=== PATIENT | male | born 1975 | race Caucasian/White ===

== ENCOUNTER 2024-09-14 01:08 | Emergency (ER) | payer OTHER ==
[~2024-09-14] VITALS: Ht 175.3 cm; Wt 131.5 kg
[2024-09-14 04:12] VITALS: BP 132/90; TEMP 98; O2SAT 97
== END 2024-09-14 04:13 | disposition home or self-care (01) ==
LOC: ER 01:10
DX: T16.1XXA Foreign body in right ear, initial encounter (principal); W44.G1XA Audio device entering into or through a natural orifice, initial encounter; Y93.89 Activity, other specified; Y92.89 Other specified places as the place of occurrence of the external cause; Y99.8 Other external cause status